=== PATIENT | female | born 1995 | race Caucasian/White ===

== ENCOUNTER 2025-05-03 11:49 | Inpatient (IN) | payer OTHER ==
[2025-05-03] MEDS ORDERED: hydrALAZINE 20 MG/ML VIAL SLOW IVP PRN (20:06)
[2025-05-03] MEDS ORDERED: Lidocaine 1% (PF) 30 ML VIAL SC PRN (20:06)
[2025-05-03] MEDS ORDERED: Ibuprofen 800 MG TAB PO PRN (20:06)
[2025-05-03] MEDS ORDERED: Oxytocin 30 units/NS 500 ML 500 ML IV SCH ×2 (20:06)
[2025-05-03] MEDS ORDERED: Methylergonovine 0.2 MG/ML VIAL IM PRN (20:06)
[2025-05-03] MEDS ORDERED: Ondansetron PF 4 MG/2 ML Vial IVP PRN (20:06)
[2025-05-03] MEDS ORDERED: HYDROcodone/Acetaminophen 5/325 mg Tablet PO PRN ×2 (20:06)
[2025-05-03] MEDS ORDERED: Diphenoxylate HCl/Atropine Tablet PO PRN ×2 (20:06)
[2025-05-03] MEDS ORDERED: Carboprost 250 MCG/ML AMP IM PRN (20:06)
[2025-05-03 20:34] VITALS: BMI 32.4
[2025-05-03 21:24] LABS: Hematocrit 33.3 % (34.9-44.5); Hemoglobin 11.4 g/dL (12.0-15.5); Mean Corpuscular Hemoglobin 30.1 pg (27.0-33.0); Mean Corpuscular Volume 87.9 fL (81.6-98.3); Platelet Count 182 10x3/uL (150-450); Red Blood Cell (RBC) Count 3.79 10x6/uL (3.90-5.03); White Blood Cell (WBC) Count 9.94 10x3/uL (3.5-10.5)
[2025-05-03 23:54] LABS: Syphilis Antibody Index 0.03 S/CO (<1.00 Non-Reactive)
[2025-05-03 23:56] LABS: HIV (1/2) Antibody/Antigen Non-Reactive (NonReactive); HIV 1/2 INDEX 0.11 S/CO (<1.00); Hep B Surf Ag - L&D Non-Reactive S/CO (NonReactive)
[2025-05-04] MEDS: Oxytocin 30 units/NS 500 ML 500 ML IV SCH (06:18)
[2025-05-04] MEDS: fentaNYL/Ropivacaine Epidural 100 ML ONE (12:27)
[2025-05-04] MEDS ORDERED: Communication Order-Pharmacy FS SCH (12:45)
[2025-05-04] MEDS: diphenhydrAMINE 50 MG/ML VIAL IVP PRN (21:59)
[2025-05-04] MEDS: Famotidine/PF 20 mg/2ml Vial SLOW IVP SCH (22:19)
[2025-05-04] MEDS: Acetaminophen 500 MG TAB PO PRN (23:24)
[2025-05-05] MEDS: fentaNYL 2 mcg/Ropivacaine 0.2% Epidural 100 ML CADD EPIDURAL SCH (00:02)
[2025-05-05] MEDS: Gentamicin Sulfate 80 MG in Premix 1 BAG IVPB SCH (00:25)
[2025-05-05] MEDS: Acetaminophen 325 MG TAB PO PRN (03:26)
[2025-05-05] MEDS ORDERED: Methylergonovine 0.2 MG TAB PO PRN (09:06)
[2025-05-05] MEDS ORDERED: Lanolin Ointment 7 GM TUBE TOP PRN (09:06)
[2025-05-05] MEDS ORDERED: diphenhydrAMINE 25 MG CAP PO PRN (09:06)
[2025-05-05] MEDS ORDERED: Ondansetron PF 4 MG/2 ML Vial IVP PRN ×2 (09:06→09:44)
[2025-05-05] MEDS ORDERED: hydrALAZINE 20 MG/ML VIAL SLOW IVP PRN (09:06)
[2025-05-05] MEDS ORDERED: Methylergonovine 0.2 MG/ML VIAL IM PRN (09:06)
[2025-05-05] MEDS ORDERED: Simethicone Chewable 80 MG TAB PO PRN (09:06)
[2025-05-05] MEDS ORDERED: Benzocaine-Menthol 82.5 ML CAN TOP PRN (09:10)
[2025-05-05] MEDS ORDERED: Meperidine HCl/PF 25 MG (1 mL) VIAL SLOW IVP PRN (09:44)
[2025-05-05] MEDS ORDERED: diphenhydrAMINE 50 MG/ML VIAL IVP PRN (09:44)
[2025-05-05] MEDS ORDERED: HYDROmorphone 0.5 MG/0.5 ML SYRINGE SLOW IVP PRN (09:44)
[2025-05-05] MEDS ORDERED: Communication Order-Pharmacy FS SCH (09:45)
[2025-05-05] MEDS: Acetaminophen 500 MG TAB PO SCH (09:59)
[2025-05-05] MEDS: Lidocaine 2% MPF 10 ML AMP (For Epidural Use) ONE (10:00)
[2025-05-05] MEDS: Tranexamic Acid 1,000 MG/10 ML VIAL ONE (10:00)
[2025-05-05] MEDS: CEFAZOLIN 2 GM VIAL ONE (10:00)
[2025-05-05] MEDS: Acetaminophen 325 MG TAB PO SCH (10:00)
[2025-05-05] MEDS: Ketorolac Tromethamine 30 MG (1 mL) VIAL IVP SCH (10:01)
[2025-05-05] MEDS: Famotidine/PF 20 mg/2ml Vial ONE (10:01)
[2025-05-05] MEDS: Oxytocin 10 UNITS/ML VIAL ONE (10:01)
[2025-05-05] MEDS: Dexamethasone 10 MG/ML VIAL ONE (10:01)
[2025-05-05] MEDS: Oxytocin 30 units/NS 500 ML 500 ML IV SCH (11:02)
[2025-05-05] MEDS: Ondansetron PF 4 MG/2 ML Vial IVP PRN ×2 (11:04)
[2025-05-05] MEDS: Ketorolac Tromethamine 30 MG (1 mL) VIAL IVP PRN (15:42)
[2025-05-06 06:16] LABS: Hematocrit 26.3 % (34.9-44.5); Hemoglobin 8.8 g/dL (12.0-15.5); Mean Corpuscular Hemoglobin 30.3 pg (27.0-33.0); Mean Corpuscular Volume 90.7 fL (81.6-98.3); Platelet Count 144 10x3/uL (150-450); Red Blood Cell (RBC) Count 2.90 10x6/uL (3.90-5.03); White Blood Cell (WBC) Count 14.93 10x3/uL (3.5-10.5)
[2025-05-06] MEDS: Ferrous Sulfate 325 MG TAB PO SCH (08:11)
[2025-05-06] MEDS: Ibuprofen 800 MG TAB PO SCH (14:08)
[2025-05-06] MEDS: Acetaminophen 325 MG TAB PO PRN (20:36)
[2025-05-07 08:39] VITALS: BP 106/61; TEMP 97.6
== END 2025-05-07 11:45 | disposition home or self-care (01) | DRG 788 ==
LOC: CSHLD 20:03 → CSHPED 05-05 11:30
PROVIDERS: ADMIT Obstetrics & Gynecology; ATTEND Obstetrics & Gynecology
PROC: 10D00Z1 Extraction of Products of Conception, Low, Open Approach (ICD-10-PCS; principal; 2025-05-05)
DX: O48.0 Post-term pregnancy (principal); O76 Abnormality in fetal heart rate and rhythm complicating labor and delivery; Z37.0 Single live birth; Z3A.40 40 weeks gestation of pregnancy; O99.02 Anemia complicating childbirth; O62.1 Secondary uterine inertia; O42.02 Full-term premature rupture of membranes, onset of labor within 24 hours of rupture; O33.9 Maternal care for disproportion, unspecified
CPT/HCPCS: 36415; 51702; 85027; 86780; 86850; 86900; 86901; 87340; 87389; C1889; J0290; J0295; J1100; J1200; J1308; J1580; J1885; J2274; J2405; J2550; J2590